=== PATIENT | female | born 1955 | race Caucasian/White ===

== ENCOUNTER → 2020-01-18 08:00 | Outpatient (CLI) | payer OTHER, SELFPAY ==
[2020-01-18 09:50] LABS: Add Manual Diff / Slide Review NO; Basophils Absolute Auto 100 /uL (0-100); Basophils Percent Auto 0.9 % (0-2); Eosinophils Absolute Auto 200 /uL (0-450); Eosinophils Percent Auto 2.6 % (2-4); Hematocrit 41.8 % (36-46); Hemoglobin 14.1 g/dL (12.0-16.0); Lymphocytes Absolute Auto 2000 /uL (1100-4500); Lymphocytes Percent Auto 30.5 % (25-40); Mean Corpuscular HGB Conc 33.8 % (30-36); Mean Corpuscular Volume 94.7 fL (80-100); Monocytes Absolute Auto 600 /uL (0-900); Monocytes Percent Auto 8.5 % (3-14); Neutrophils Absolute Auto 3800 /uL (1500-7000); Neutrophils Percent Auto 57.5 % (50-75); Platelet Count 269 X10^3/uL (150-400); Red Blood Cell Count 4.42 X10^6/uL (4.0-5.2); Red Cell Distribution Width 13.1 % (11.6-14.8); White Blood Cell Count 6.6 X10^3/uL (4.5-11.0)
[2020-01-18 09:52] LABS: Hemoglobin A1C% w Est Avg Glu 5.5 % (4.0-6.0)
[2020-01-18 10:08] LABS: Alanine Aminotransferase 20 IU/L (<35); Albumin 4.4 g/dL (3.5-5.0); Albumin Globulin Ratio 1.6 (1.0-2.8); Alkaline Phosphatase 76 U/L (38-126); Aspartate Aminotransferase 24 IU/L (14-36); BUN Creatinine Ratio 25.3 (6-22); Bilirubin Total 0.4 mg/dL (0.2-1.3); Blood Urea Nitrogen 21 mg/dL (7-17); Calcium 9.8 mg/dL (8.4-10.2); Carbon Dioxide 26 mmol/L (22-32); Chloride 106 mmol/L (98-107); Cholesterol 282 mg/dL (140-199); Estimated Glomerular Filt Rate > 60.0 mL/min (>60); Globulin 2.8 g/dL (1.7-4.1); Glucose 99 mg/dL (80-110); HDL Cholesterol 92 mg/dL (40-60); HEMOLYSIS < 15 (0-50); LDL Cholesterol Calculated 158 mg/dL (<100); Potassium 5.2 mmol/L (3.4-5.1); Sodium 139 mmol/L (137-145); Total Protein 7.2 g/dL (6.3-8.2); Triglycerides 158 mg/dL (35-150)
[2020-01-18 10:37] LABS: TSH w/ Reflex to FT4 2.26 uIU/mL (0.47-4.68)
[2020-01-18 10:40] LABS: Ferritin 63 ng/mL (11-264)
[2020-01-18 11:10] LABS: Folate > 20.0 ng/mL (2.76-20.0); Vitamin B12 > 1000 pg/mL (239-931)
== END ==
PROVIDERS: PCP Family Medicine; Referring Provider Family Medicine; Visit Provider Family Medicine
DX: E66.9 Obesity, unspecified (principal); I10 Essential (primary) hypertension
CPT/HCPCS: 36415; 80053; 80061; 82306; 82607; 82728; 82746; 83036; 84443; 85025

== ENCOUNTER → 2020-08-14 11:38 | Outpatient (CLI) | payer OTHER, SELFPAY ==
--- NOTE | 2020-08-14 11:39 | DI.MG.S_ITS ---
BILATERAL DIGITAL SCREENING MAMMOGRAM 3D/2D WITH CAD: 08/14/2020 CLINICAL: Routine screening. No prior exams were available for comparison. The tissue of both breasts is predominantly fatty. Current study was also evaluated with a Computer Aided Detection (CAD) system. No significant masses, calcifications, or other findings are seen in either breast. IMPRESSION: NEGATIVE There is no mammographic evidence of malignancy. A 1 year screening mammogram is recommended. This exam was interpreted at Station ID: [id number]. NOTE: For mammograms, a report in lay terms will be sent to the patient. Approximately 15% of breast malignancies will not be visualized mammographically. In the management of a palpable breast mass, a negative mammogram must not discourage biopsy of a clinically suspicious lesion. Electronically Signed By: Jon Lin M.D. [email or web address]:08/24/2020 08:49:06 letter sent: Normal Exam ACR BI-RADS Category 1: Negative [id number]
== END ==
PROVIDERS: PCP Family Medicine; Referring Provider Family Medicine; Visit Provider Family Medicine
DX: Z12.31 Encounter for screening mammogram for malignant neoplasm of breast (principal)
CPT/HCPCS: 77063; 77067

== ENCOUNTER → 2020-09-27 07:34 | Outpatient (CLI) | payer OTHER, SELFPAY ==
[2020-09-27 09:18] LABS: BUN Creatinine Ratio 22.1 (6-22); Blood Urea Nitrogen 21 mg/dL (7-17); Calcium 9.7 mg/dL (8.4-10.2); Carbon Dioxide 26 mmol/L (22-32); Chloride 105 mmol/L (98-107); Estimated Glomerular Filt Rate 59.2 mL/min (>60); Glucose 95 mg/dL (80-110); HEMOLYSIS 21 (0-50); Potassium 4.5 mmol/L (3.4-5.1); Sodium 139 mmol/L (137-145)
[2020-09-27 10:06] LABS: Vitamin B12 > 1000 pg/mL (239-931)
== END ==
PROVIDERS: PCP Family Medicine; Referring Provider Family Medicine; Visit Provider Family Medicine
DX: E87.5 Hyperkalemia (principal); R74.8 Abnormal levels of other serum enzymes
CPT/HCPCS: 36415; 80048; 82607

== ENCOUNTER → 2023-09-11 11:22 | Outpatient (CLI) | payer OTHER, SELFPAY ==
--- NOTE | 2023-09-11 11:24 | DI.RAD.S_ITS ---
PROCEDURE: XR LUMBAR SPINE MIN 4V INDICATIONS: BACK PAIN TECHNIQUE: 5 views of the lumbar spine were acquired, including bilateral oblique views. COMPARISON: MR 04/20/2023. FINDINGS: Bones: 5 nonrib-bearing vertebrae are present. Mild leftward curvature of the lumbar spine, centered at L3. Grade 1 retrolisthesis of L1 on L2. Grade 1 anterolisthesis of L4 on L5. Moderate disc height loss at all levels. Facet arthrosis L3 through S1. No vertebral body compression fractures. No suspicious bony lesions. Soft tissues: Overlying bowel gas pattern is normal. No suspicious soft tissue calcifications. Oblique images: No pars defects. IMPRESSION: Moderate, multilevel degenerative disc disease and lower lumbar facet arthrosis, not significantly changed since recent MRI. Degenerative grade 1 anterolisthesis of L4 on L5 and degenerative grade 1 retrolisthesis of L1 on L2. Dictated by: Carmelo Maldonado M.D. on 09/11/2023 at 13:21 Approved by: Carmelo Maldonado M.D. on 09/11/2023 at 13:23
== END ==
PROVIDERS: Referring Provider Physical Medicine & Rehabilitation; Visit Provider Physical Medicine & Rehabilitation
DX: M51.36 Other intervertebral disc degeneration, lumbar region (principal); M47.816 Spondylosis without myelopathy or radiculopathy, lumbar region; M47.817 Spondylosis without myelopathy or radiculopathy, lumbosacral region; M43.16 Spondylolisthesis, lumbar region; M54.9 Dorsalgia, unspecified
CPT/HCPCS: 72110

== ENCOUNTER 2024-05-20 11:23 | Emergency (ER) | payer MEDICARE, OTHER, SELFPAY ==
[2024-05-20] VITALS (34 sets, daily range): BP systolic 129–186; BP diastolic 64–114; PULSE 66–94; RESP 16–18; TEMP 36.8; O2SAT 93–98; BMI 31.8
--- NOTE | 2024-05-20 11:42 | DI.RAD.S_ITS ---
PROCEDURE: XR HIP W PEL IF DONE GUILLERMO MIN 4V INDICATIONS: fall, pain TECHNIQUE: AP pelvis with lateral view(s) of the left hip(s). COMPARISON: None. FINDINGS: Bones: Suspected greater trochanter fracture on the left femur. Soft tissues: The visualized bowel gas pattern is normal. No suspicious soft tissue calcifications. IMPRESSION: Suspected left greater trochanter femoral fracture. Correlate with pain. This could be confirmed with CT. Dictated by: Carmelo Maldonado M.D. on 05/20/2024 at 12:05 Approved by: Carmelo Maldonado M.D. on 05/20/2024 at 12:07
--- NOTE | 2024-05-20 12:16 | ED.FALL ---
HPI - Fall <Trevor Davies MD - Last Filed: 05/20/24 18:59> General Chief Complaint: Fall Stated Complaint: GLF Time Seen by Provider: 05/20/24 11:38 Source: patient Mode of arrival: Family Vehicle History of Present Illness HPI Narrative: Patient is a female with a history of a previous fall on March 05 who presents with a second fall today. The patient reports tripping while coming out of the elevator, catching her foot in her slipper, and landing on her right hip. The first fall involved the left side, and the patient did not seek medical attention at that time. She has been experiencing pain managed with muscle relaxers and alprazolam, and she is due for her next dose of pain medication. The patient denies hitting her head or losing consciousness. She currently has pain on both sides, with the left side being worse. Medications: Muscle relaxer, alprazolam, hydrocodone-acetaminophen 10/325. Related Data Home Medications Medication Instructions Recorded Confirmed alprazolam 1 mg tablet 1 mg PO BEDTIME sleep 05/20/24 05/20/24 losartan 50 mg tablet 25 mg PO BID 05/20/24 05/20/24 methocarbamol 750 mg tablet 1,500 mg PO 3XD PRN pain 05/20/24 05/20/24 Allergies Allergy/AdvReac Type Severity Reaction Status Date / Time blood thinners AdvReac Uncoded 05/20/24 16:30 Review of Systems <Trevor Davies MD - Last Filed: 05/20/24 18:59> Review of Systems ROS Unobtainable: All systems reviewed & are unremarkable except as noted in HPI and below Patient History <Trevor Davies MD - Last Filed: 05/20/24 18:59> Medical History (Updated 05/20/24 @ 23:06 by Alisa Beebe RN) Scoliosis (and kyphoscoliosis), idiopathic Spondylolisthesis at L1-L2 level Spondylolisthesis at L4-L5 level Facet arthropathy, lumbar Family history of blood clots Insomnia Obesity (BMI 30.0-34.9) Rosacea Psoriasis Eczema Migraines Foot pain Measles Chicken pox Abnormal Pap smear of cervix Surgical History Anesthesia History of colonoscopy History of surgery Family History Brother No problems noted. Grandmother No problems noted. Social History marital status: Smoking Status: Former smoker Smoking Status: Former smoker tobacco type: cigarettes Exam <Trevor Davies MD - Last Filed: 05/20/24 18:59> Narrative Exam Narrative: General: Well appearing, well nourished, in no distress. Skin: Good turgor, no rash, unusual bruising or prominent lesions. Head: Normocephalic, atraumatic. HEENT: Conjunctiva clear, EOM intact, PERRL, Mucous membranes moist. Neck: Supple, normal ROM. Heart: Regular rate and rhythm, no murmur or gallop or rubs. Lungs: Clear to auscultation. No rales, rhonchi, or wheezes. Abdomen: Soft and nontender. Bowel sounds normal. No mass or hernia. Back: Spine normal without deformity or tenderness, no CVA tenderness. Extremities: Point tenderness overlying the proximal femur bilaterally. Able to lift bilateral legs off the bed against gravity, less so on the left side. No shortened extremities, no internal or external rotation. Bilateral lower extremities with 2+ DP and PT pulses. Neurologic: CN 2-12 normal. Normal sensation and motor exam. Psychiatric: Oriented X3. normal mood and affect. Initial Vital Signs Initial Vital Signs: Vital Signs Pulse Rate 66 05/20/24 11:26 <Lalit So MD - Last Filed: 05/21/24 07:53> Initial Vital Signs Initial Vital Signs: Vital Signs Pulse Rate 66 05/20/24 11:26 Course <Trevor Davies MD - Last Filed: 05/20/24 18:59> Orders Ordered: Discontinued Medications Hydrocodone Bitart/Acetaminophen (Hydrocodone/Acet 10/325 Tablet) 1 tab PO NOW ONE Stop: 05/20/24 12:17 Last Admin: 05/20/24 12:38 Dose: 1 tab Documented By: MPO Morphine Sulfate (Morphine 4 Mg/Ml Inj) 4 mg IV NOW ONE Stop: 05/20/24 14:56 Last Admin: 05/20/24 15:06 Dose: 4 mg Documented By: RLS Morphine Sulfate (Morphine 4 Mg/Ml Inj) 4 mg IV Q2HR PRN PRN Reason: Pain, Severe (7-10) Stop: 05/23/24 17:22 Last Admin: 05/20/24 20:31 Dose: 4 mg Documented By: Admin: 05/20/24 17:52 Dose: 4 mg Documented By: BILL Ondansetron HCl (Ondansetron 4 Mg/2 Ml Inj) 4 mg IV Q6HR PRN PRN Reason: Nausea And Vomiting Stop: 05/23/24 17:24 Vital Signs Vital signs: Vital Signs - 8 hr 05/20/24 11:26 05/20/24 11:28 05/20/24 11:28 Temperature Pulse Rate 66 69 Respiratory Rate Blood Pressure 166/76 H Pulse Oximetry 98 Oxygen Delivery Method 05/20/24 11:30 05/20/24 11:30 05/20/24 11:35 Temperature 98.2 F Pulse Rate 71 69 Respiratory Rate 16 Blood Pressure 164/72 H 166/76 H Pulse Oximetry 97 98 Oxygen Delivery Method Room Air 05/20/24 12:00 05/20/24 12:24 05/20/24 12:24 Temperature Pulse Rate 75 69 Respiratory Rate Blood Pressure 144/64 H Pulse Oximetry 96 96 Oxygen Delivery Method 05/20/24 12:30 05/20/24 12:30 05/20/24 13:00 Temperature Pulse Rate 69 71 Respiratory Rate Blood Pressure 145/71 H Pulse Oximetry 96 97 Oxygen Delivery Method 05/20/24 13:01 05/20/24 13:01 05/20/24 13:33 Temperature Pulse Rate 74 76 Respiratory Rate Blood Pressure 174/86 H Pulse Oximetry 97 93 Oxygen Delivery Method 05/20/24 13:34 05/20/24 13:34 05/20/24 14:00 Temperature Pulse Rate 76 73 Respiratory Rate Blood Pressure 129/78 Pulse Oximetry 93 96 Oxygen Delivery Method 05/20/24 14:01 05/20/24 14:01 05/20/24 14:30 Temperature Pulse Rate 73 76 Respiratory Rate Blood Pressure 186/106 H Pulse Oximetry 95 96 Oxygen Delivery Method 05/20/24 14:31 05/20/24 14:31 05/20/24 15:00 Temperature Pulse Rate 78 82 Respiratory Rate Blood Pressure 155/71 H Pulse Oximetry 96 94 Oxygen Delivery Method 05/20/24 15:30 05/20/24 16:00 05/20/24 16:17 Temperature Pulse Rate 85 78 78 Respiratory Rate 18 Blood Pressure 166/78 H Pulse Oximetry 94 96 95 Oxygen Delivery Method Room Air 05/20/24 16:17 05/20/24 16:30 05/20/24 16:34 Temperature Pulse Rate 79 79 Respiratory Rate Blood Pressure 166/78 H Pulse Oximetry 95 96 Oxygen Delivery Method 05/20/24 16:34 05/20/24 17:00 05/20/24 17:01 Temperature Pulse Rate 79 Respiratory Rate Blood Pressure 141/65 H 165/70 H Pulse Oximetry 95 Oxygen Delivery Method 05/20/24 17:01 05/20/24 17:30 05/20/24 17:57 Temperature Pulse Rate 79 92 H Respiratory Rate 16 Blood Pressure 159/74 H Pulse Oximetry 94 96 Oxygen Delivery Method 05/20/24 17:57 05/20/24 18:00 Temperature Pulse Rate 85 86 Respiratory Rate Blood Pressure Pulse Oximetry 96 95 Oxygen Delivery Method <Lalit So MD - Last Filed: 05/21/24 07:53> Orders Ordered: Discontinued Medications Hydrocodone Bitart/Acetaminophen (Hydrocodone/Acet 10/325 Tablet) 1 tab PO NOW ONE Stop: 05/20/24 12:17 Last Admin: 05/20/24 12:38 Dose: 1 tab Documented By: PONCHO Morphine Sulfate (Morphine 4 Mg/Ml Inj) 4 mg IV NOW ONE Stop: 05/20/24 14:56 Last Admin: 05/20/24 15:06 Dose: 4 mg Documented By: ANA Morphine Sulfate (Morphine 4 Mg/Ml Inj) 4 mg IV Q2HR PRN PRN Reason: Pain, Severe (7-10) Stop: 05/23/24 17:22 Last Admin: 05/20/24 20:31 Dose: 4 mg Documented By: Admin: 05/20/24 17:52 Dose: 4 mg Documented By: BILL Ondansetron HCl (Ondansetron 4 Mg/2 Ml Inj) 4 mg IV Q6HR PRN PRN Reason: Nausea And Vomiting Stop: 05/23/24 17:24 Vital Signs Vital signs: Vital Signs - 8 hr 05/20/24 11:26 05/20/24 11:28 05/20/24 11:28 Temperature Pulse Rate 66 69 Respiratory Rate Blood Pressure 166/76 H Pulse Oximetry 98 Oxygen Delivery Method 05/20/24 11:30 05/20/24 11:30 05/20/24 11:35 Temperature 98.2 F Pulse Rate 71 69 Respiratory Rate 16 Blood Pressure 164/72 H 166/76 H Pulse Oximetry 97 98 Oxygen Delivery Method Room Air 05/20/24 12:00 05/20/24 12:24 05/20/24 12:24 Temperature Pulse Rate 75 69 Respiratory Rate Blood Pressure 144/64 H Pulse Oximetry 96 96 Oxygen Delivery Method 05/20/24 12:30 05/20/24 12:30 05/20/24 13:00 Temperature Pulse Rate 69 71 Respiratory Rate Blood Pressure 145/71 H Pulse Oximetry 96 97 Oxygen Delivery Method 05/20/24 13:01 05/20/24 13:01 05/20/24 13:33 Temperature Pulse Rate 74 76 Respiratory Rate Blood Pressure 174/86 H Pulse Oximetry 97 93 Oxygen Delivery Method 05/20/24 13:34 05/20/24 13:34 05/20/24 14:00 Temperature Pulse Rate 76 73 Respiratory Rate Blood Pressure 129/78 Pulse Oximetry 93 96 Oxygen Delivery Method 05/20/24 14:01 05/20/24 14:01 05/20/24 14:30 Temperature Pulse Rate 73 76 Respiratory Rate Blood Pressure 186/106 H Pulse Oximetry 95 96 Oxygen Delivery Method 05/20/24 14:31 05/20/24 14:31 05/20/24 15:00 Temperature Pulse Rate 78 82 Respiratory Rate Blood Pressure 155/71 H Pulse Oximetry 96 94 Oxygen Delivery Method 05/20/24 15:30 05/20/24 16:00 05/20/24 16:17 Temperature Pulse Rate 85 78 78 Respiratory Rate 18 Blood Pressure 166/78 H Pulse Oximetry 94 96 95 Oxygen Delivery Method Room Air 05/20/24 16:17 05/20/24 16:30 05/20/24 16:34 Temperature Pulse Rate 79 79 Respiratory Rate Blood Pressure 166/78 H Pulse Oximetry 95 96 Oxygen Delivery Method 05/20/24 16:34 05/20/24 17:00 05/20/24 17:01 Temperature Pulse Rate 79 Respiratory Rate Blood Pressure 141/65 H 165/70 H Pulse Oximetry 95 Oxygen Delivery Method 05/20/24 17:01 05/20/24 17:30 05/20/24 17:57 Temperature Pulse Rate 79 92 H Respiratory Rate 16 Blood Pressure 159/74 H Pulse Oximetry 94 96 Oxygen Delivery Method 05/20/24 17:57 05/20/24 18:00 Temperature Pulse Rate 85 86 Respiratory Rate Blood Pressure Pulse Oximetry 96 95 Oxygen Delivery Method MDM - Fall <Trevor Davies MD - Last Filed: 05/20/24 18:59> Lab Data 05/20/24 13:08 05/20/24 13:08 Labs: Lab Results 05/20/24 Range/Units 13:08 WBC 12.7 H (4.5-11.0) X10^3/uL RBC 4.31 (4.0-5.2) X10^6/uL Hgb 12.5 (12.0-16.0) g/dL Hct 38.7 (36-46) % MCV 89.8 (80-100) fL MCH 29.0 (26-34) PG MCHC 32.3 (30-36) % RDW 13.3 (11.6-14.8) % Plt Count 310 (150-400) X10^3/uL Neut % (Auto) 81.6 H (50-75) % Lymph % (Auto) 9.2 L (25-40) % [place] % (Auto) 6.8 (3-14) % Eos % (Auto) 1.6 L (2-4) % Baso % (Auto) 0.8 (0-2) % Neut # (Auto) 62932 H (7517-4757) /uL Lymph # (Auto) 1200 (2556-0794) /uL [place] # (Auto) 900 (0-900) /uL Eos # (Auto) 200 (0-450) /uL Baso # (Auto) 100 (0-100) /uL Sodium 134 L (137-145) mmol/L Potassium 3.7 (3.4-5.1) mmol/L Chloride 97 L (98-107) mmol/L Carbon Dioxide 26 (22-32) mmol/L BUN 27 H (7-17) mg/dL Creatinine 0.88 (0.52-1.04) mg/dL Estimated GFR > 60 (>60) mL/min BUN/Creatinine Ratio 30.7 H (6-22) Glucose 110 (80-110) mg/dL Calcium 10.0 (8.4-10.2) mg/dL CA 125 Antigen 196 H (0-35) U/mL Imaging Data X-ray pelvis: My Impression: Patient appears to have possible fracture of the left greater trochanter on the femur Radiologist's Impression: Found to have a left-sided greater trochanteric fracture. MDM Narrative Medical decision making narrative: Well-appearing 68-year-old female presenting after mechanical fall from standing with no vital sign abnormalities complaining of bilateral hip pain. INITIAL EVALUATION AND PLAN: - Administer pain medication (hydrocodone-acetaminophen 10/325). - Review X-ray results to assess for fractures. - Monitor for any changes in pain or neurological status. - Differential diagnosis includes but is not limited to: hip fracture, muscle strain, contusion, and other musculoskeletal injuries. -discussed the case with on-call Orthopedics who recommended patient try to ambulate with a walker if able to do so outpatient follow-up with orthopedics if unable to do so they recommend CT scan for further evaluation of occult injury -I discussed the case with Dr. Ac at [facility] as well as the gynecology oncologist over at [facility] who accept the patient for transfer to their facility for ongoing management of her fractures as well as further workup of new ovarian mass 05/20/24, Judah Marrero. Sign-out from Dr. Davies. <Lalit So MD - Last Filed: 05/21/24 07:53> Lab Data Labs: Lab Results 05/20/24 Range/Units 13:08 WBC 12.7 H (4.5-11.0) X10^3/uL RBC 4.31 (4.0-5.2) X10^6/uL Hgb 12.5 (12.0-16.0) g/dL Hct 38.7 (36-46) % MCV 89.8 (80-100) fL MCH 29.0 (26-34) PG MCHC 32.3 (30-36) % RDW 13.3 (11.6-14.8) % Plt Count 310 (150-400) X10^3/uL Neut % (Auto) 81.6 H (50-75) % Lymph % (Auto) 9.2 L (25-40) % [place] % (Auto) 6.8 (3-14) % Eos % (Auto) 1.6 L (2-4) % Baso % (Auto) 0.8 (0-2) % Neut # (Auto) 96377 H (2127-1176) /uL Lymph # (Auto) 1200 (3840-7819) /uL [place] # (Auto) 900 (0-900) /uL Eos # (Auto) 200 (0-450) /uL Baso # (Auto) 100 (0-100) /uL Sodium 134 L (137-145) mmol/L Potassium 3.7 (3.4-5.1) mmol/L Chloride 97 L (98-107) mmol/L Carbon Dioxide 26 (22-32) mmol/L BUN 27 H (7-17) mg/dL Creatinine 0.88 (0.52-1.04) mg/dL Estimated GFR > 60 (>60) mL/min BUN/Creatinine Ratio 30.7 H (6-22) Glucose 110 (80-110) mg/dL Calcium 10.0 (8.4-10.2) mg/dL CA 125 Antigen 196 H (0-35) U/mL MDM Narrative Medical decision making narrative: Well-appearing 68-year-old female presenting after mechanical fall from standing with no vital sign abnormalities complaining of bilateral hip pain. INITIAL EVALUATION AND PLAN: - Administer pain medication (hydrocodone-acetaminophen 10/325). - Review X-ray results to assess for fractures. - Monitor for any changes in pain or neurological status. - Differential diagnosis includes but is not limited to: hip fracture, muscle strain, contusion, and other musculoskeletal injuries. -discussed the case with on-call Orthopedics who recommended patient try to ambulate with a walker if able to do so outpatient follow-up with orthopedics if unable to do so they recommend CT scan for further evaluation of occult injury -I discussed the case with Dr. Ac at [facility] as well as the gynecology oncologist over at [facility] who accept the patient for transfer to their facility for ongoing management of her fractures as well as further workup of new ovarian mass 05/20/2024, Judah Marrero. Sign-out from Dr. Davies. Patient awaiting transfer to [facility] for management of fractures in context of ovarian mass. EMS transport pending. Assumed care. 2044, patient went by ground BLS EMS transport to [facility] Discharge Plan Departure Patient Disposition: [facility] Clinical Impression: Ovarian mass, right, Fracture of greater trochanter of right femur, Fracture of greater trochanter of left femur Prescriptions: No Action methocarbamol 750 mg tablet 1,500 mg PO 3XD PRN (Reason: pain) losartan 50 mg tablet 25 mg PO BID alprazolam 1 mg tablet 1 mg PO BEDTIME Referrals: Miscellaneous,Doctor, [Primary Care Provider] -
[2024-05-20] MEDS: HYDROCODONE/ACET 10/325 TABLET 1 TAB PO (12:38)
--- NOTE | 2024-05-20 13:21 | DI.CT.S_ITS ---
PROCEDURE: CT PEL WO CON INDICATIONS: Left hip fracture inability to bear weight TECHNIQUE: Noncontrast 3 mm axial sections acquired through the bony pelvis, with coronal and sagittal reformatting. COMPARISON: None. FINDINGS: Image quality: Excellent. Bones: There is a comminuted fracture of the left trochanter. There is heterogeneous appearance of the right trochanter, with a cortical step-off. A couple of lucent lesions in the pelvis, concerning for metastatic disease. For instance, the 1.5 centimeter right iliac bone lucent lesion (series 2, image 17). Soft tissues: Small left inguinal hernia containing fat. There is peritoneal carcinomatosis, with nodular appearance of the peritoneum. Right ovarian solid mass measuring 5.1 x 8.3 centimeter. Small volume ascites. IMPRESSION: Comminuted, mildly displaced extra-articular fracture of the left greater trochanter. Heterogeneous appearance of the greater trochanter raises the concern for pathologic fracture. Suspected additional minimally displaced right greater trochanter fracture, also possibly pathologic. Right ovarian solid mass measuring 5.1 x 8.3 centimeters, with associated peritoneal carcinomatosis. Lytic lesions are seen within the pelvis. Dictated by: Carmelo Maldonado M.D. on 05/20/2024 at 14:09 Approved by: Carmelo Maldonado M.D. on 05/20/2024 at 14:12
--- NOTE | 2024-05-20 13:21 | PC.NURSE ---
Pt unable to bear weight on left side during ambulation trial. Winces in pain while trying to get out of bed and with toe touch to floor. A&Ox4.
[2024-05-20 13:29] LABS: Add Manual Diff / Slide Review NO; Basophils Absolute Auto 100 /uL (0-100); Basophils Percent Auto 0.8 % (0-2); Eosinophils Absolute Auto 200 /uL (0-450); Eosinophils Percent Auto 1.6 % (2-4); Hematocrit 38.7 % (36-46); Hemoglobin 12.5 g/dL (12.0-16.0); Lymphocytes Absolute Auto 1200 /uL (1100-4500); Lymphocytes Percent Auto 9.2 % (25-40); Mean Corpuscular HGB Conc 32.3 % (30-36); Mean Corpuscular Volume 89.8 fL (80-100); Monocytes Absolute Auto 900 /uL (0-900); Monocytes Percent Auto 6.8 % (3-14); Neutrophils Absolute Auto 10300 /uL (1500-7000); Neutrophils Percent Auto 81.6 % (50-75); Platelet Count 310 X10^3/uL (150-400); Red Blood Cell Count 4.31 X10^6/uL (4.0-5.2); Red Cell Distribution Width 13.3 % (11.6-14.8); White Blood Cell Count 12.7 X10^3/uL (4.5-11.0)
[2024-05-20 13:40] LABS: BUN Creatinine Ratio 30.7 (6-22); Blood Urea Nitrogen 27 mg/dL (7-17); Carbon Dioxide 26 mmol/L (22-32); Chloride 97 mmol/L (98-107); Estimated Glomerular Filt Rate > 60 mL/min (>60); Glucose 110 mg/dL (80-110); HEMOLYSIS < 15 (0-50); Potassium 3.7 mmol/L (3.4-5.1); Sodium 134 mmol/L (137-145)
[2024-05-20] MEDS: MORPHINE 4 MG/ML INJ IV ×3 (15:06→20:31)
[2024-05-20 15:42] LABS: Cancer Antigen 125 196 U/mL (0-35)
--- NOTE | 2024-05-20 16:36 | PC.NURSE ---
pt reports she has hemophilia
== END 2024-05-20 20:50 | disposition short-term general hospital (02) ==
PROVIDERS: Emergency Medicine; Emergency Provider Emergency Medicine
DX: S72.112A Displaced fracture of greater trochanter of left femur, initial encounter for closed fracture (principal); S72.111A Displaced fracture of greater trochanter of right femur, initial encounter for closed fracture; N83.8 Other noninflammatory disorders of ovary, fallopian tube and broad ligament; W01.0XXA Fall on same level from slipping, tripping and stumbling without subsequent striking against object, initial encounter
CPT/HCPCS: 36415; 72192; 73522; 80048; 85025; 86304; 96374; 96376; 99284; J2270